=== PATIENT | female | born 1980 | race Caucasian/White ===

== ENCOUNTER 2019-07-01 18:47 | Emergency (ER) | payer MEDICAID ==
[~2019-07-01] VITALS: Ht 166.4 cm; Wt 79.0 kg
[~2019-07-01 18:47] MED LIST: ACYC5CRE2 TP; DIAZ2TAB PO
[2019-07-01 20:16] VITALS: BP 115/88
== END 2019-07-01 20:17 | disposition home or self-care (01) ==
LOC: ER 18:47
DX: S59.911A Unspecified injury of right forearm, initial encounter (principal); F32.9 Major depressive disorder, single episode, unspecified; Z87.891 Personal history of nicotine dependence; Z88.0 Allergy status to penicillin; Z88.8 Allergy status to other drugs, medicaments and biological substances; Z79.899 Other long term (current) drug therapy; W01.198A Fall on same level from slipping, tripping and stumbling with subsequent striking against other object, initial encounter; Y93.89 Activity, other specified; Y92.002 Bathroom of unspecified non-institutional (private) residence as the place of occurrence of the external cause; Y99.8 Other external cause status
CPT/HCPCS: 73080; 99284

== ENCOUNTER 2020-04-29 18:07 | Emergency (ER) | payer MEDICAID ==
[~2020-04-29] VITALS: Ht 165.1 cm; Wt 74.5 kg
--- NOTE | 2020-04-29 18:27 | NUR ---
POISON CONTROLLED NOTIFIED. WAS INFORMED THAT INGESTION COULD BE DEADLY. BY DRINKING THAT MUCH BUBBLES FORM AND PT IS AT RISK FOR DEVELOPING EMBOLUS ANYWHERE IN THE BODY. PATIENT SHOULD BE OBSERVED FOR AT LEAST 24 HOURS. DO NOT ALLOW VOMITING AND TO WATCH FOR DIFFICULTY SWOLLOWING.
--- NOTE | 2020-04-29 19:04 | NUR ---
PT STATED DRAWING BLOOD IS NOT PART OF MONITORING AND SHE REFUSED. DR MORELAND IS AWARE
[2020-04-29 20:38] VITALS: BP 132/83
== END 2020-04-29 20:51 | disposition home or self-care (01) ==
LOC: ER 18:08
DX: R10.84 Generalized abdominal pain (principal); T49.0X5A Adverse effect of local antifungal, anti-infective and anti-inflammatory drugs, initial encounter; R11.2 Nausea with vomiting, unspecified; F32.9 Major depressive disorder, single episode, unspecified; Z98.890 Other specified postprocedural states; Z88.0 Allergy status to penicillin; Z88.8 Allergy status to other drugs, medicaments and biological substances; Z79.2 Long term (current) use of antibiotics; Z79.899 Other long term (current) drug therapy; Y92.89 Other specified places as the place of occurrence of the external cause
CPT/HCPCS: 99281; 99283

== ENCOUNTER 2020-11-07 15:04 | Emergency (ER) | payer MEDICAID ==
[~2020-11-07] VITALS: Ht 165.1 cm; Wt 78.5 kg
[2020-11-07 16:23] VITALS: BP 124/63
[2020-11-07] MEDS ORDERED: BUPR100T5 PO (16:40)
--- NOTE | 2020-11-07 16:59 | NUR ---
Pt. seen, evaluated, and placed ready for discharge prior to RN intervention.
== END 2020-11-07 16:55 | disposition home or self-care (01) ==
LOC: ER 15:05
DX: F32.9 Major depressive disorder, single episode, unspecified (principal); Z76.0 Encounter for issue of repeat prescription; Z98.890 Other specified postprocedural states; Z88.0 Allergy status to penicillin; Z88.8 Allergy status to other drugs, medicaments and biological substances; Z79.2 Long term (current) use of antibiotics; Z79.899 Other long term (current) drug therapy
CPT/HCPCS: 99283

== ENCOUNTER → 2021-04-02 | Emergency (ER) | payer MEDICAID ==
[~2021-04-02] VITALS: Ht 165.1 cm; Wt 68.2 kg
[~2021-04-02] MED LIST changes: +BUPR100T5 PO
[2021-04-02 11:20] VITALS: BP 114/87
== END | disposition left against medical advice (07) ==
LOC: ER 11:00
DX: Z02.89 Encounter for other administrative examinations (principal); R10.84 Generalized abdominal pain; F32.9 Major depressive disorder, single episode, unspecified; Z98.890 Other specified postprocedural states; Z88.0 Allergy status to penicillin; Z88.8 Allergy status to other drugs, medicaments and biological substances; Z79.2 Long term (current) use of antibiotics; Z79.899 Other long term (current) drug therapy
CPT/HCPCS: 99281